=== PATIENT | female | born 1995 | race Caucasian/White ===

== ENCOUNTER 2020-12-02 09:38 | Outpatient (CLI) | payer OTHER | END 2020-12-02 09:39 | disposition home or self-care (01) | LOC: CSHRAD 09:38 | PROVIDERS: ATTEND Psychiatry & Neurology Neurology | DX: M54.5 Low back pain (principal) | CPT/HCPCS: 72100 ==

== ENCOUNTER 2021-08-08 10:54 | Outpatient (CLI) | payer OTHER, MEDICARE | END 2021-08-08 10:55 | disposition home or self-care (01) | LOC: CSHMRI 10:54 | PROVIDERS: ATTEND Neurological Surgery | DX: M54.50 Low back pain, unspecified (principal); M54.16 Radiculopathy, lumbar region | CPT/HCPCS: 72148 ==

== ENCOUNTER 2022-01-08 12:25 | Emergency (ER) | payer OTHER ==
[2022-01-08] MEDS ORDERED: Ketorolac Tromethamine 30 MG/ML VIAL ONE (13:28)
[2022-01-08 14:07] LABS: #Eosinphils 0.1 10x3/uL (0.0-0.5); #Monocytes 0.3 10x3/uL (0.0-1.1); #Neutrophils 4.4 10x3/uL (1.5-8.4); %Basophils 0.4 % (0.0-2.0); %Eosinophils 1.2 % (0.0-6.0); %Lymphocytes 3.8 % (18.0-47.0); %Monocytes 6.2 % (0.0-10.0); %Neutrophils 88.2 % (40.0-75.0); Hemoglobin 13.1 g/dL (12.0-15.5); Mean Corpuscular HGB CONC 34.5 g/dL (32.0-36.0); Mean Platelet Volume 10.7 fl (7.4-10.4); Platelet Count 182 10x3/uL (150-450); RBC Distribution Width 13.3 % (11.5-14.5); Red Blood Cell (RBC) Count 4.22 10x6/uL (3.90-5.03)
[2022-01-08 14:24] LABS: Pregnancy Test - Urine (BHCG) Negative (Negative); Pregu Control Background? CLEAR/WHITE (CLR/WHITE); Pregu Control Bar Appear? YES (CONTROL BAR)
[2022-01-08 14:49] LABS: Bilirubin Neg (Negative); Blood, Urine Negative (Negative); Clarity Clear (Clear); Glucose, Urine (Dipstick) Normal (Negative); Ketone, Urine 150 mg/dL (Negative); Leukocyte Negative (Negative); Nitrite Negative (Negative); Protein, Urine (Dipstick) Negative (Neg-Trace); Specific Gravity, Urine 1.015 (1.002-1.036); Urobilinogen Normal mg/dL (Less than 2); pH, Urine 6.5 (5.0-9.0)
== END 2022-01-08 16:55 | disposition home or self-care (01) ==
LOC: CSHERS 12:25
DX: M54.42 Lumbago with sciatica, left side (principal); M54.41 Lumbago with sciatica, right side; F17.290 Nicotine dependence, other tobacco product, uncomplicated
CPT/HCPCS: 81003; 81025; 85025; 86140; 96374; J1885

== ENCOUNTER 2022-02-14 09:00 | Emergency (ER) | payer OTHER ==
[2022-02-14] MEDS ORDERED: Ondansetron PF 4 MG/2 ML Vial ONE (09:45)
== END 2022-02-14 11:08 | disposition home or self-care (01) ==
LOC: CSHERS 09:00
DX: T18.198A Other foreign object in esophagus causing other injury, initial encounter (principal); F17.290 Nicotine dependence, other tobacco product, uncomplicated
CPT/HCPCS: 96374; J2405

== ENCOUNTER 2022-08-15 13:49 | Outpatient (CLI) | payer OTHER | END 2022-08-15 13:50 | disposition home or self-care (01) | LOC: CSHCT 13:49 | PROVIDERS: ATTEND Surgery | DX: R22.2 Localized swelling, mass and lump, trunk (principal); M41.84 Other forms of scoliosis, thoracic region; Z98.890 Other specified postprocedural states; M79.89 Other specified soft tissue disorders | CPT/HCPCS: 72129 ==

== ENCOUNTER 2024-07-19 14:56 | Outpatient (CLI) | payer OTHER | END 2024-07-19 14:57 | disposition home or self-care (01) | LOC: CSHMRI 14:56 | PROVIDERS: ATTEND Family Medicine Sports Medicine | DX: Q85.01 Neurofibromatosis, type 1 (principal); G96.198 Other disorders of meninges, not elsewhere classified; M50.221 Other cervical disc displacement at C4-C5 level; M48.02 Spinal stenosis, cervical region; M41.84 Other forms of scoliosis, thoracic region; Z96.7 Presence of other bone and tendon implants; Z98.1 Arthrodesis status; G96.9 Disorder of central nervous system, unspecified | CPT/HCPCS: 72141; 72146 ==